=== PATIENT | female | born 1995 | race Caucasian/White ===

== ENCOUNTER 2022-06-06 22:25 | Emergency (ER) | payer SELFPAY ==
[2022-06-06] VITALS (8 sets, daily range): BP systolic 123–132; BP diastolic 64–86; PULSE 99–102; RESP 16; TEMP 36.8; O2SAT 96–99
[2022-06-07] VITALS (7 sets, daily range): BP systolic 125–134; BP diastolic 60–73; PULSE 85–100; RESP 18; O2SAT 96–98
[2022-06-07] MEDS: 0.9 % SODIUM CHLORIDE 1000 ml 1,000 ML IV (00:11)
[2022-06-07] MEDS: ONDANSETRON 2 MG/ML inj 4 MG IVP (00:11)
[2022-06-07] MEDS: KETOROLAC 30 MG/ML inj IVP (00:11)
[2022-06-07 00:30] LABS: Basophils Percent Auto 0.1 % (0.0-3.0); Hematocrit 35.2 % (33.0-51.0); Hemoglobin* 10.6 gm/dL (12.0-16.0); Immature Granulocytes Pct Auto 0.2 %; Lymphocytes Percent Auto 38.2 % (20-44); Mean Corpuscular HGB Conc 30 gm/dL (32-36); Mean Corpuscular Hemoglobin 24 pg (26-34); Mean Corpuscular Volume 78 fL (80-100); Monocytes Percent Auto 7.4 % (0.0-11.0); Neutrophils Percent Auto 52.1 % (42.0-72.0); Platelet Count* 500 K/uL (140-440); RDW Coefficient of Variation % 16.6 % (11.5-15.5); Red Blood Count 4.49 m/uL (4.00-5.20); White Blood Count* 10.05 K/uL (4.50-11.00)
[2022-06-07 00:31] LABS: Basophils Absolute Auto 0.01 K/uL (0.00-0.30); Immature Granulocytes Abs Auto 0.02 K/uL (0.00-0.30); Lymphocytes Absolute Auto 3.84 K/uL (0.90-2.90); Neutrophils Absolute Auto 5.24 K/uL (1.7-7.0)
[2022-06-07 00:33] LABS: Slide Review Reflex No
[2022-06-07 00:40] LABS: Albumin* 4.1 g/dL (3.3-5.0)
[2022-06-07 00:41] LABS: Chloride* 107 mmol/L (96-114); Potassium* 4.3 mmol/L (3.6-5.1); Sodium* 139 mmol/L (135-149)
[2022-06-07 00:43] LABS: Alanine Aminotransferase* 42 U/L (4-35); Alkaline Phosphatase* 136 U/L (40-150); Aspartate Amino Transferase* 41 U/L (12-35); Bilirubin Direct* 0.2 mg/dL (0.0-0.5); Bilirubin Total* 0.5 mg/dL (0.1-1.5); Creatinine* 0.6 mg/dL (0.5-1.5); Estimated Glomerular Filt Rate 127 ml/min
[2022-06-07 00:44] LABS: Blood Urea Nitrogen* 16 mg/dL (5-24); Carbon Dioxide* 24 mmol/L (20-32); Lactate Dehydrogenase* 217 U/L (120-246)
[2022-06-07 00:45] LABS: Calcium* 9.3 mg/dL (8.4-10.6); Glucose* 96 mg/dL (60-115); Prothrombin Time 12.7 Seconds
[2022-06-07 00:47] LABS: C Reactive Protein* 0.8 mg/dL (0.5-1.0)
[2022-06-07 01:12] LABS: Appearance Urine Clear (Clear); Bilirubin Urine Negative (Negative); Blood Urine 3+ (Negative); Color Urine Yellow (Yellow); Glucose Urine Negative (Negative); Ketones Urine Negative (Negative); Leukocyte Esterase Urine Negative (Negative); Nitrite Urine Negative (Negative); Protein Urine Trace (Negative); Specific Gravity Urine >= 1.030 (1.000-1.030); Urobilinogen Urine 0.2 (0.2-1.0); pH Urine 6.5 (5.0-8.5)
[2022-06-07 01:18] LABS: Bacteria Urine Few; Squamous Epithelial Cell Urine Few (None-Few)
--- NOTE | 2022-06-07 01:36 | ED_ITS ---
HPI - Headache General Chief Complaint: Headache/Migraine Stated Complaint: Headache,Heavy vaginal bleeding,upper quad pain Time Seen by Provider: 06/06/22 23:42 History of Present Illness HPI Narrative: 26-year-old young woman accompanied by significant other with complaint of headache and vaginal bleeding. Delivered just shy of 3 weeks ago. Was treated for preeclampsia and ultimately induced. Did receive magnesium and was discharged with 3 days of unspecified antihypertensive which has been discontinued. Started to have a headache again today. Noted bitemporal. No visual changes. Admittedly sore in the upper back and neck. She is doing some best she can. Three days ago did have increase in bleeding vaginally following some upper abdominal pain. Initially brighter red she says then darkened and returned to bright red. Admittedly this has lessened. When called into the nurse line they were some concerns about potentially excessive blood loss as Fernando reported blood pressures lower than usual. It sounds like trends towards low hypertensive. She had been initiated on oral iron as well as iron infusion she said post noting unusually heavy bleeding for a vaginal delivery. Headache is not improved with acetaminophen. Related Data Home Medications Medication Instructions Recorded Confirmed sertraline 25 mg tablet (Zoloft) 25 mg PO DAILY 06/06/22 06/06/22 Allergies Allergy/AdvReac Type Severity Reaction Status Date / Time diphenhydramine Allergy Hives Verified 06/06/22 22:56 [From Benadryl] flagyl Allergy Hives Uncoded 06/06/22 22:56 Review of Systems Status of ROS: Reports: 10 or more systems reviewed and unremarkable except as noted in History and below PFSH PFSH Social History Smoking Status: Former smoker Do you use any of these nicotine containing products: None Second hand tobacco smoke exposure: No How often do you have a drink containing alcohol: never How often do you have six or more drinks on one occasion: Never AUDIT-C Alcohol total score: 0 Non-prescribed substance use: denies use service: No Exam Narrative: Exam Narrative: Pleasant. Calm. Breathing easily. Head is atraumatic. Cranial nerves 2-12 look to be intact. Oropharynx unremarkable. Neck is supple. She is though quite sore across the low neck and trapezial musculature. Lungs are clear. Heart is in an elevated to low tachycardic rate. Regular rhythm. Abdomen is soft mildly tender to palpation across the upper abdomen. Uterus seems firm/minimally palpable. /vaginal exam was not done. Extremities are well perfused without edema; maybe a little dependent in the lower extremities. Moving all extremities without difficulty. No clonus. Const: Vital Signs, click to edit/add: Vital Signs - 24 hr 06/06/22 22:58 06/06/22 23:11 06/06/22 23:10 Temperature 98.2 F Pulse Rate 100 Pulse Rate [Pulse Oximeter] 102 H 101 H Respiratory Rate 16 16 Blood Pressure Blood Pressure [Ri ght Upper Arm] 129/86 123/70 Pulse Oximetry 98 97 97 Oxygen Delivery Me thod Room Air Room Air 06/06/22 23:15 06/06/22 23:30 06/06/22 23:31 Temperature Pulse Rate 102 H 99 99 Pulse Rate [Pulse Oximeter] Respiratory Rate Blood Pressure 132/64 Blood Pressure [Ri ght Upper Arm] Pulse Oximetry 97 98 98 Oxygen Delivery Me thod 06/06/22 23:45 06/06/22 23:51 06/07/22 00:00 Temperature Pulse Rate 100 92 Pulse Rate [Pulse Oximeter] Respiratory Rate Blood Pressure Blood Pressure [Ri ght Upper Arm] Pulse Oximetry 99 96 98 Oxygen Delivery Me thod 06/07/22 00:01 06/07/22 00:15 06/07/22 00:30 Temperature Pulse Rate 100 87 92 Pulse Rate [Pulse Oximeter] Respiratory Rate Blood Pressure 134/73 Blood Pressure [Ri ght Upper Arm] Pulse Oximetry 98 97 96 Oxygen Delivery Me thod 06/07/22 00:31 06/07/22 00:45 06/07/22 02:03 Temperature Pulse Rate 87 91 Pulse Rate [Pulse Oximeter] 85 Respiratory Rate 18 Blood Pressure 125/60 Blood Pressure [Ri ght Upper Arm] 127/62 Pulse Oximetry 97 96 98 Oxygen Delivery Me thod Room Air Documenting provider has reviewed patient's vital signs: yes Course Vital Signs Vital signs: Initial Vital Signs Temperature 98.2 F 06/06/22 22:58 Temperature Source Temporal Artery Scan 06/06/22 22:58 Pulse Rate 102 H 06/06/22 22:58 Pulse Rhythm 06/06/22 22:58 Respiratory Rate 16 06/06/22 22:58 Blood Pressure 129/86 06/06/22 22:58 Blood Pressure Mean 100 06/06/22 22:58 Pulse Oximetry 98 06/06/22 22:58 Oxygen Delivery Method 06/06/22 22:58 Vital Signs Temperature 98.2 F 06/06/22 22:58 Pulse Rate 102 H 06/06/22 22:58 Respiratory Rate 16 06/06/22 22:58 Blood Pressure 129/86 06/06/22 22:58 Pulse Oximetry 98 06/06/22 22:58 Oxygen Delivery Method 06/06/22 22:58 Temperature 98.2 F 06/06/22 22:58 Pulse Rate 85 06/07/22 02:03 Respiratory Rate 18 06/07/22 02:03 Blood Pressure 127/62 06/07/22 02:03 Pulse Oximetry 98 06/07/22 02:03 Oxygen Delivery Method 06/07/22 02:03 MDM - Headache MDM Narrative Medical decision making narrative: I initially understood that was reporting higher blood pressures than usual but with further questioning actually were lower. I had already initiated laboratory evaluation and treatment for headache. Does not sound to be excessively bleeding at this time. IV was initiated though did receive a L of normal saline and ketorolac and 4 mg of Zofran. On re- evaluation was markedly improved. Admittedly did look more comfortable. Labs are overall reassuring. I did do partial laboratory evaluation for preeclampsia. Urinalysis likely representing continued lochia. Perhaps there was some residual clot to explain some increased bleeding couple days ago. Story does not seem consistent with retained product. I do not have prior hemoglobin available but given her report I am reassured by this hemoglobin level of 10.6. Is generally microcytic. Platelets of 500. Transaminases very mildly elevated. Blood pressures trended quite good in the emergency department. Lab Data Attestation: I reviewed the patient's lab results. Labs: Lab Results 06/07/22 06/07/22 06/07/22 Range/Units 00:16 00:16 00:16 WBC 10.05 (4.50-11.00) K/uL RBC 4.49 (4.00-5.20) m/uL Hgb 10.6 L (12.0-16.0) gm/dL Hct 35.2 (33.0-51.0) % MCV 78 L (80-100) fL MCH 24 L (26-34) pg MCHC 30 L (32-36) gm/dL RDW Coeff of Taina 16.6 H (11.5-15.5) % Plt Count 500 H (140-440) K/uL Neut % (Auto) 52.1 (42.0-72.0) % Lymph % (Auto) 38.2 (20-44) % [place] % (Auto) 7.4 (0.0-11.0) % Eos % (Auto) 2.0 (0.0-7.0) % Baso % (Auto) 0.1 (0.0-3.0) % Neut # (Auto) 5.24 (1.7-7.0) K/uL Lymph # (Auto) 3.84 H (0.90-2.90) K/uL [place] # (Auto) 0.70 (0.00-0.90) K/UL Eos # (Auto) 0.20 (0.00-0.50) K/uL Baso # (Auto) 0.01 (0.00-0.30) K/uL INR (0.91-1.10) Sodium 139 (135-149) mmol/L Potassium 4.3 (3.6-5.1) mmol/L Chloride 107 (96-114) mmol/L Carbon Dioxide 24 (20-32) mmol/L BUN 16 (5-24) mg/dL Creatinine 0.6 (0.5-1.5) mg/dL Estimated GFR 127 ml/min Glucose 96 (60-115) mg/dL Calcium 9.3 (8.4-10.6) mg/dL Magnesium 2.0 (1.5-2.6) mg/dL Total Bilirubin 0.5 (0.1-1.5) mg/dL Direct Bilirubin 0.2 (0.0-0.5) mg/dL AST 41 H (12-35) U/L ALT 42 H (4-35) U/L Alkaline Phosphatase 136 (40-150) U/L Lactate Dehydrogenase 217 (120-246) U/L C-Reactive Protein 0.8 (0.5-1.0) mg/dL Total Protein 8.0 (6.0-8.3) g/dL Albumin 4.1 (3.3-5.0) g/dL Urine Color (Yellow) Urine Appearance (Clear) Urine pH (5.0-8.5) Ur Specific Sacul (1.000-1.030) Urine Protein (Negative) Urine Glucose (UA) (Negative) Urine Ketones (Negative) Urine Blood (Negative) Urine Nitrite (Negative) Urine Bilirubin (Negative) Urine Urobilinogen (0.2-1.0) Ur Leukocyte Esterase (Negative) Urine RBC (0-2) Urine WBC (0-5) Ur Squamous Epith Cells (None-Few) Urine Bacteria (None) 06/07/22 06/07/22 Range/Units 00:16 01:00 WBC (4.50-11.00) K/uL RBC (4.00-5.20) m/uL Hgb (12.0-16.0) gm/dL Hct (33.0-51.0) % MCV (80-100) fL MCH (26-34) pg MCHC (32-36) gm/dL RDW Coeff of Taina (11.5-15.5) % Plt Count (140-440) K/uL Neut % (Auto) (42.0-72.0) % Lymph % (Auto) (20-44) % [place] % (Auto) (0.0-11.0) % Eos % (Auto) (0.0-7.0) % Baso % (Auto) (0.0-3.0) % Neut # (Auto) (1.7-7.0) K/uL Lymph # (Auto) (0.90-2.90) K/uL [place] # (Auto) (0.00-0.90) K/UL Eos # (Auto) (0.00-0.50) K/uL Baso # (Auto) (0.00-0.30) K/uL INR 0.90 L (0.91-1.10) Sodium (135-149) mmol/L Potassium (3.6-5.1) mmol/L Chloride (96-114) mmol/L Carbon Dioxide (20-32) mmol/L BUN (5-24) mg/dL Creatinine (0.5-1.5) mg/dL Estimated GFR ml/min Glucose (60-115) mg/dL Calcium (8.4-10.6) mg/dL Magnesium (1.5-2.6) mg/dL Total Bilirubin (0.1-1.5) mg/dL Direct Bilirubin (0.0-0.5) mg/dL AST (12-35) U/L ALT (4-35) U/L Alkaline Phosphatase (40-150) U/L Lactate Dehydrogenase (120-246) U/L C-Reactive Protein (0.5-1.0) mg/dL Total Protein (6.0-8.3) g/dL Albumin (3.3-5.0) g/dL Urine Color Yellow (Yellow) Urine Appearance Clear (Clear) Urine pH 6.5 (5.0-8.5) Ur Specific Sacul >= 1.030 (1.000-1.030) Urine Protein Trace A (Negative) Urine Glucose (UA) Negative (Negative) Urine Ketones Negative (Negative) Urine Blood 3+ A (Negative) Urine Nitrite Negative (Negative) Urine Bilirubin Negative (Negative) Urine Urobilinogen 0.2 (0.2-1.0) Ur Leukocyte Esterase Negative (Negative) Urine RBC 2-5 A (0-2) Urine WBC 5-10 A (0-5) Ur Squamous Epith Cells Few (None-Few) Urine Bacteria Few A (None) Discharge Plan Discharge Clinical Impression: Headache Patient Disposition: Home w/ Parent or Adult Condition: Improved Instructions: Acute Headache (ED) Additional Instructions: Do continue to focus on hydration. Return for recurrence of severe headache not relieved by ibuprofen or acetaminophen or hydration. I would try to do some stretching of the upper back and neck a few times daily. Return for increasing vaginal bleeding where again you are bleeding through/soaking a heavy pad an hour for 2 consecutive hours. I would also follow up later this week or early next week with your OB or primary care provider to recheck. You should be able to log in today to see your lab results. A urine culture will be pending. Prescriptions: No Action sertraline [Zoloft] 25 mg tablet 25 mg PO DAILY Follow Up/Referrals: Provider,Not a Local [Primary Care Provider] - Stand Alone Forms: [employer] Info Instructions
== END 2022-06-07 02:05 | disposition home or self-care (01) ==
PROVIDERS: Emergency Provider Family Medicine
DX: R51.9 Headache, unspecified (principal); N93.9 Abnormal uterine and vaginal bleeding, unspecified
CPT/HCPCS: 36415; 80048; 80076; 81001; 83615; 83735; 85025; 85610; 86140; 87086; 94761; 96374; 96375; 99283; 99284; J1885; J2405; J7030